=== PATIENT | male | born 1925 | race Caucasian/White ===

== ENCOUNTER → 2016-07-03 | Outpatient (CLI) | payer OTHER, MEDICARE ==
[~2016-07-03] MED LIST: AMLO2.5T PO; ASPI-435 PO; LSN5 PO
[2016-07-03 17:02] LABS: BASO % 0.5 %; BASO ABS # 0.03 K/uL (0-0.2); COMPLETE YES; EOS % 2.2 %; HEMATOCRIT 44.4 % (42-52); IG% 0.2 %; LYMPH % 31.8 %; LYMPH ABS # 2.06 K/uL (1.2-3.4); MEAN CELL VOLUME 98.4 fL (80-100); MEAN CORPUSCULAR HEMOGLOBIN 32.4 pg (25-34); MEAN CORPUSCULAR HGB CONC 32.9 g/dl (32-36); MONO % 12.5 %; NEUT % 52.8 %; PLATELET COUNT 187 K/uL (130-400); RED BLOOD COUNT 4.51 M/uL (4.7-6.1); WHITE BLOOD COUNT 6.47 K/uL (4.8-10.8)
[2016-07-03 17:17] LABS: BLOOD UREA NITROGEN 22 mg/dl (7-18); BUN/CREATININE RATIO 19.9 (10-20); CALCIUM 8.9 mg/dl (8.5-10.1); CARBON DIOXIDE 27 mmol/L (21-32); CHLORIDE 107 mmol/L (98-107); CHOLESTEROL 112 mg/dl (0-200); GLUCOSE 90 mg/dl (70-99); POTASSIUM 4.3 mmol/L (3.5-5.1); SODIUM 142 mmol/L (136-145); TRIGLYCERIDES 168 mg/dl (0-150); VERY LOW DENSITY LIPOPROT CALC 34 mg/dl
[2016-07-03 17:21] LABS: CHOLESTEROL/HDL RATIO 2.8; HDL CHOLESTEROL 40 mg/dl; LDL CHOLESTEROL CALCULATED 38 mg/dl; PROSTATE SPECIFIC ANTIGEN < 0.010 ng/ml (0.000-4.000)
== END | disposition home or self-care (01) ==
LOC: C.LABBC 13:05
PROVIDERS: ATTEND Internal Medicine
DX: I10 Essential (primary) hypertension (principal); K52.0 Gastroenteritis and colitis due to radiation; Z85.46 Personal history of malignant neoplasm of prostate

== ENCOUNTER → 2016-09-09 | Outpatient (CLI) | payer OTHER, MEDICARE | END | disposition home or self-care (01) | LOC: C.PATHSPEC 16:37 | PROVIDERS: ATTEND Dermatology | DX: L82.1 Other seborrheic keratosis (principal); C44.329 Squamous cell carcinoma of skin of other parts of face ==

== ENCOUNTER → 2016-10-17 | Outpatient (CLI) | payer OTHER, MEDICARE | END | disposition home or self-care (01) | LOC: C.PATHSPEC 17:57 | PROVIDERS: ATTEND Plastic Surgery | DX: C44.329 Squamous cell carcinoma of skin of other parts of face (principal); L82.1 Other seborrheic keratosis ==

== ENCOUNTER → 2017-01-30 | Outpatient (CLI) | payer OTHER, MEDICARE ==
[2017-01-30 13:32] LABS: HEMATOCRIT 44.1 % (42-52); MEAN CELL VOLUME 98.7 fL (80-100); MEAN CORPUSCULAR HEMOGLOBIN 31.8 pg (25-34); MEAN CORPUSCULAR HGB CONC 32.2 g/dl (32-36); MEAN PLATELET VOLUME 10.6 fL (7.4-10.4); PLATELET COUNT 175 K/uL (130-400); RED BLOOD COUNT 4.47 M/uL (4.7-6.1); WHITE BLOOD COUNT 6.19 K/uL (4.8-10.8)
[2017-01-30 14:16] LABS: BLOOD UREA NITROGEN 18 mg/dl (7-18); BUN/CREATININE RATIO 16.6 (10-20); CALCIUM 9.1 mg/dl (8.5-10.1); CARBON DIOXIDE 30 mmol/L (21-32); CHLORIDE 106 mmol/L (98-107); GLUCOSE 90 mg/dl (70-99); POTASSIUM 4.3 mmol/L (3.5-5.1); SODIUM 142 mmol/L (136-145)
[2017-01-30 14:25] LABS: THYROID STIMULATING HORMONE 0.811 uIu/ml (0.300-4.500)
== END | disposition home or self-care (01) ==
LOC: C.LAB1850 12:39
PROVIDERS: ATTEND Internal Medicine
DX: I10 Essential (primary) hypertension (principal); G62.9 Polyneuropathy, unspecified

== ENCOUNTER → 2017-05-07 | Outpatient (CLI) | payer OTHER, MEDICARE | END | disposition home or self-care (01) | LOC: C.PATHSPEC 16:09 | PROVIDERS: ATTEND Dermatology | DX: L82.1 Other seborrheic keratosis (principal) ==

== ENCOUNTER 2017-06-12 15:38 | Emergency (ER) | payer OTHER, MEDICARE ==
[~2017-06-12] VITALS: Ht 167.6 cm; Wt 85.5 kg
[~2017-06-12 15:38] MED LIST changes: -AMLO2.5T PO; -ASPI-435 PO
[2017-06-12 15:46] VITALS: TEMP 36.7; Ht 167.6 cm; Wt 85.5 kg
--- NOTE | 2017-06-12 17:37 | EMERGENCY ROOM VISIT NOTE ---
History Report prepared by Mansi: Jose Elias Edmond Under the Supervision of: Claude PéerzO. First contact with patient: 17:32 Chief Complaint: HEADACHE Stated Complaint: HEADACHE FOR 4 DAYS- PHYSICIAN REFERRED History of Present Illness The patient is an 89 year old male with a history of hypertension who presents to the Emergency Room with complaints of an intermittent headache that started 4 days ago. He states that the headache came on suddenly, and is worse during the day than at night. He says that nothing makes the pain better or worse. The patient notes that the pain is on top of his head on the right side. He states that he was sent here from [facility] for evaluation of a possible stroke. He notes no history of a stroke. The patient denies any chest pain, shortness of breath, nausea, vomiting, fevers, cold symptoms, rashes, or recent falls. Source of History: patient Onset: 4 days ago Position: head Quality: other (sudden onset) Timing: intermittent Associated Symptoms: No fevers (or cold symptoms), No chest pain, No SOB, No nausea, No vomiting, No rash Note: Denies recent falls. Review of Systems See HPI for pertinent positives & negatives. A total of 10 systems reviewed and were otherwise negative. Past Medical & Surgical Medical Problems: (1) Hypertension Family History Noncontributory due to advanced age Social History Smoking Status: Never Smoker Smokeless Tobacco Use: No Marital Status: Housing Status: lives with significant other Occupation Status: retired Current/Historical Medications Scheduled Amlodipine Besylate (Norvasc), 2.5 MG PO DAILY Aspirin (Aspirin 81), 81 MG PO DAILY Lisinopril (Prinivil), 10 MG PO DAILY Scheduled PRN Furosemide (Lasix), 20 MG PO DAILY PRN for EDEMA Ranitidine Hcl (Zantac), 150 MG PO HS PRN for ACID REFLUX Silver Sulfadiazine (Silvadene), 1 APPLN TOP TID PRN for APPLY TO SORE AREAS IN GROIN Allergies Coded Allergies: No Known Allergies (Unverified , 01/12/14) Physical Exam Vital Signs Date Time Temp Pulse Resp B/P (MAP) Pulse Ox O2 Delivery O2 Flow Rate FiO2 06/12/17 19:53 75 16 123/70 98 06/12/17 18:41 58 06/12/17 18:33 59 16 148/59 95 Room Air 06/12/17 18:33 94 Room Air 06/12/17 18:33 95 Room Air 06/12/17 15:46 36.7 67 18 132/76 94 Room Air Physical Exam GENERAL: Patient is awake, alert, and in no acute distress. Patient is resting comfortably and showing no signs of anxiety EYES: The conjunctivae are clear. The pupils are round and reactive. EARS, NOSE, MOUTH AND THROAT: The nose is without any evidence of any deformity. Mucous membranes are moist tongue is midline NECK: The neck is nontender and supple. RESPIRATORY: Normal respiratory effort is noted there is no evidence of wheezing rhonchi or rales CARDIOVASCULAR: Regular rate and rhythm noted there no murmurs rubs or gallops normal S1 normal S2 GASTROINTESTINAL: The abdomen is soft. Bowel sounds are present in all quadrants. Abdomen is nontender MUSCULOSKELETAL/EXTREMITIES: There is no evidence of gross deformity full range of motion is noted in the hips and shoulders SKIN: Pedal edema bilaterally. No rash noted to scalp. NEUROLOGIC: Patient is awake alert and oriented x3. Gait was slow but steady. Fine resting tremor noted bilaterally. Medical Decision & Procedures ER Provider Diagnostic Interpretation: Radiology results as stated below per my review and radiologist interpretation: HEAD CT NONCONTRAST CT DOSE: 537.48 mGy.cm HISTORY: EVALUATE ALTERED MENTAL STATUS/WEAKNESS TECHNIQUE: Multiaxial CT images of the head were performed without the use of intravenous contrast. Automated exposure control was utilized for this study. A dose lowering technique was utilized adhering to the principles of ALARA. Comparison: Head CT 01/12/2014. Findings: A 1 cm left posterior nasal polyp or retention cyst. No fluid levels within the paranasal sinuses. The mastoid air cells are clear. The calvarium and skull base are intact. There is no mass, hematoma, midline shift, acute infarct. White matter hypodensity is nonspecific but suggestive of extensive microvascular ischemic change. This remains unchanged. The ventricles and sulci demonstrate mild age-related involutional changes. Impression: No significant change compared to the prior study. No acute intracranial abnormality. Electronically signed by: Po He M.D. 06/12/2017 6:34 PM Dictated Date/Time: 06/12/2017 6:30 PM CHEST ONE VIEW PORTABLE CLINICAL HISTORY: EVALUATE ALTERED MENTAL STATUS/WEAKNESS pain. Dyspnea. COMPARISON STUDY: 01/12/2014 FINDINGS: Mild stable cardia megaly. Diaphragms smooth. Lungs are clear. IMPRESSION: No acute process. The above report was generated using voice recognition software. It may contain grammatical, syntax or spelling errors. Electronically signed by: Burke Armijo M.D. 06/12/2017 5:54 PM Dictated Date/Time: 06/12/2017 5:54 PM Laboratory Results 06/12/17 17:50 Red Blood Count 4.54, Mean Corpuscular Volume 100.0, Mean Corpuscular Hemoglobin 33.5, Mean Corpuscular Hemoglobin Concent 33.5, Mean Platelet Volume 10.5, Neutrophils (%) (Auto) 47.2, Lymphocytes (%) (Auto) 32.9, Monocytes (%) ( Auto) 16.3, Eosinophils (%) (Auto) 3.1, Basophils (%) (Auto) 0.3, Neutrophils # (Auto) 2.94, Lymphocytes # (Auto) 2.04, Monocytes # (Auto) 1.01, Eosinophils # ( Auto) 0.19, Basophils # (Auto) 0.02 06/12/17 17:50 Test 06/12/17 17:50 White Blood Count 6.21 K/uL (4.8-10.8) Red Blood Count 4.54 M/uL (4.7-6.1) Hemoglobin 15.2 g/dL (14.0-18.0) Hematocrit 45.4 % (42-52) Mean Corpuscular Volume 100.0 fL (80-100) Mean Corpuscular Hemoglobin 33.5 pg (25-34) Mean Corpuscular Hemoglobin Concent 33.5 g/dl (32-36) Platelet Count 169 K/uL (130-400) Mean Platelet Volume 10.5 fL (7.4-10.4) Neutrophils (%) (Auto) 47.2 % Lymphocytes (%) (Auto) 32.9 % Monocytes (%) (Auto) 16.3 % Eosinophils (%) (Auto) 3.1 % Basophils (%) (Auto) 0.3 % Neutrophils # (Auto) 2.94 K/uL (1.4-6.5) Lymphocytes # (Auto) 2.04 K/uL (1.2-3.4) Monocytes # (Auto) 1.01 K/uL (0.11-0.59) Eosinophils # (Auto) 0.19 K/uL (0-0.5) Basophils # (Auto) 0.02 K/uL (0-0.2) RDW Standard Deviation 50.1 fL (36.4-46.3) RDW Coefficient of Variation 13.7 % (11.5-14.5) Immature Granulocyte % (Auto) 0.2 % Immature Granulocyte # (Auto) 0.01 K/uL (0.00-0.02) Prothrombin Time 10.2 SECONDS (9.0-12.0) Prothromb Time International Ratio 1.0 (0.9-1.1) Activated Partial Thromboplast Time 25.2 SECONDS (21.0-31.0) Partial Thromboplastin Ratio 1.0 Anion Gap 8.0 mmol/L (3-11) Est Creatinine Clear Calc Drug Dose 40.1 ml/min Estimated GFR () 57.1 Estimated GFR (Non- 49.3 BUN/Creatinine Ratio 22.7 (10-20) Calcium Level 8.7 mg/dl (8.5-10.1) Magnesium Level 2.3 mg/dl (1.8-2.4) Total Bilirubin 0.4 mg/dl (0.2-1) Direct Bilirubin 0.1 mg/dl (0-0.2) Aspartate Amino Transf (AST/SGOT) 15 U/L (15-37) Alanine Aminotransferase (ALT/SGPT) 21 U/L (12-78) Alkaline Phosphatase 61 U/L (45-117) Troponin I < 0.015 ng/ml (0-0.045) Total Protein 7.1 gm/dl (6.4-8.2) Albumin 3.5 gm/dl (3.4-5.0) Thyroid Stimulating Hormone (TSH) 0.855 uIu/ml (0.300-4.500) Laboratory results per my review. ECG Per My Interpretation Indication: other (headache) Rate (beats per minute): 60 Rhythm: normal sinus Findings: 1st degree AV block, no ectopy, other (no acute ST segment abnormalities) Change: no significant change (from 01/12/14) ED Course 1731: The patient was evaluated in room C6. A complete history and physical examination were performed. 1941: Upon reevaluation, the patient is resting. I discussed the results and treatment plan with him. He verbalized agreement of the treatment plan. He was discharged home. Medical Decision Differential diagnosis: Etiologies such as migraine headache, meningitis, sinusitis, CO exposure, ICH, SAH, infection, tumor, headache, sinus thrombosis, arterial dissection, as well as others were entertained. Nursing notes reviewed. The patient is an 89-year-old male who presented to the emergency department for an evaluation of headache. The patient describes pain over his scalp. He has had the pain for approximately 1 week. The patient did not have signs of shingles. He presented to his primary care physician and was sent to the emergency department for the possibility of stroke. The patient does not have any focal neurologic deficits. I discussed the patient's laboratory and radiographic studies with him. He was feeling much better without any pain medication. He did not wish to be evaluated by the hospitalist for possible inpatient management. He was encouraged to rest and avoid any strenuous activity. I also recommended that he continue using Tylenol for pain and continue all other medications as prescribed. Otherwise he was encouraged to return to the emergency department immediately if symptoms change worsening of the need arises or if he developed any rashes that appear to be consistent with shingles. Medication Reconcilliation Current Medication List: was personally reviewed by me Blood Pressure Screening Patient's blood pressure: Elevated blood pressure Blood pressure disposition: Elevated BP felt to be situational Impression Primary Impression: Headache Scribe Attestation The scribe's documentation has been prepared under my direction and personally reviewed by me in its entirety. I confirm that the note above accurately reflects all work, treatment, procedures, and medical decision making performed by me. Departure Information Dispostion Home / Self-Care Referrals Joao Savage M.D. (PCP) Patient Instructions Headache Pain, My [facility] Additional Instructions Call your family doctor to schedule a follow-up appointment. Rest and avoid any strenuous activity. Continue all medications as prescribed. Return to the emergency department immediately if symptoms change or worsen or the need arises. Have a recheck especially if he developed a rash on her scalp redevelop any symptoms that could be related to stroke such as slurred speech or weakness in the arms or legs. Problem Qualifiers Primary Impression: Headache Headache type: unspecified Headache chronicity pattern: acute headache Intractability: not intractable Qualified Codes: R51 - Headache
--- NOTE | 2017-06-12 17:55 | DIAGNOSTIC IMAGING REPORT ---
CHEST ONE VIEW PORTABLE CLINICAL HISTORY: EVALUATE ALTERED MENTAL STATUS/WEAKNESS pain. Dyspnea. COMPARISON STUDY: 01/12/2014 FINDINGS: Mild stable cardia megaly. Diaphragms smooth. Lungs are clear. IMPRESSION: No acute process. The above report was generated using voice recognition software. It may contain grammatical, syntax or spelling errors. Electronically signed by: Burke Armijo M.D. 06/12/2017 5:54 PM Dictated Date/Time: 06/12/2017 5:54 PM
[2017-06-12 18:03] LABS: BASO % 0.3 %; BASO ABS # 0.02 K/uL (0-0.2); EOS % 3.1 %; EOS ABS # 0.19 K/uL (0-0.5); HEMATOCRIT 45.4 % (42-52); HEMOGLOBIN 15.2 g/dL (14.0-18.0); IG# 0.01 K/uL (0.00-0.02); LYMPH % 32.9 %; LYMPH ABS # 2.04 K/uL (1.2-3.4); MEAN CORPUSCULAR HEMOGLOBIN 33.5 pg (25-34); MEAN CORPUSCULAR HGB CONC 33.5 g/dl (32-36); MEAN PLATELET VOLUME 10.5 fL (7.4-10.4); MONO % 16.3 %; MONO ABS # 1.01 K/uL (0.11-0.59); NEUT % 47.2 %; NEUT ABS # 2.94 K/uL (1.4-6.5); PLATELET COUNT 169 K/uL (130-400); RED CELL DISTRIBUTION WIDTH CV 13.7 % (11.5-14.5); RED CELL DISTRIBUTION WIDTH SD 50.1 fL (36.4-46.3); WHITE BLOOD COUNT 6.21 K/uL (4.8-10.8)
[2017-06-12 18:17] LABS: PTT PATIENT 25.2 SECONDS (21.0-31.0)
[2017-06-12 18:26] LABS: ALBUMIN 3.5 gm/dl (3.4-5.0); ALT/SGPT 21 U/L (12-78); AST/SGOT 15 U/L (15-37); BLOOD UREA NITROGEN 29 mg/dl (7-18); CALCIUM 8.7 mg/dl (8.5-10.1); CARBON DIOXIDE 26 mmol/L (21-32); CREATININE 1.28 mg/dl (0.60-1.40); GLUCOSE 96 mg/dl (70-99); POTASSIUM 4.4 mmol/L (3.5-5.1); SODIUM 141 mmol/L (136-145)
[2017-06-12 18:33] VITALS: O2SAT 95
[2017-06-12] MEDS ORDERED: AMLO2.5T PO (18:33)
--- NOTE | 2017-06-12 18:36 | DIAGNOSTIC IMAGING REPORT ---
HEAD CT NONCONTRAST CT DOSE: 537.48 mGy.cm HISTORY: EVALUATE ALTERED MENTAL STATUS/WEAKNESS TECHNIQUE: Multiaxial CT images of the head were performed without the use of intravenous contrast. Automated exposure control was utilized for this study. A dose lowering technique was utilized adhering to the principles of ALARA. Comparison: Head CT 01/12/2014. Findings: A 1 cm left posterior nasal polyp or retention cyst. No fluid levels within the paranasal sinuses. The mastoid air cells are clear. The calvarium and skull base are intact. There is no mass, hematoma, midline shift, acute infarct. White matter hypodensity is nonspecific but suggestive of extensive microvascular ischemic change. This remains unchanged. The ventricles and sulci demonstrate mild age-related involutional changes. Impression: No significant change compared to the prior study. No acute intracranial abnormality. Electronically signed by: Po He M.D. 06/12/2017 6:34 PM Dictated Date/Time: 06/12/2017 6:30 PM
[2017-06-12 18:37] LABS: ALKALINE PHOSPHATASE 61 U/L (45-117); TOTAL PROTEIN 7.1 gm/dl (6.4-8.2)
[2017-06-12] MEDS ORDERED: ASPI-435 PO (18:37)
[2017-06-12] MEDS ORDERED: FURO-85 PO (19:24)
[2017-06-12] MEDS ORDERED: LISI10TA PO (19:24)
[2017-06-12] MEDS ORDERED: RANI150T3 PO (19:24)
[2017-06-12] MEDS ORDERED: SILV1CRE73 TOP (19:24)
[2017-06-12 19:53] VITALS: BP 123/70; PULSE 75; O2SAT 98
== END 2017-06-12 19:54 | disposition home or self-care (01) ==
LOC: C.EDB 15:41 → C.EDC 19:54
DX: R51 Headache (principal); I10 Essential (primary) hypertension; Z79.82 Long term (current) use of aspirin